=== PATIENT | female | born 1945 | race Caucasian/White ===

== ENCOUNTER 2023-01-25 12:33 | Observation (INO) | payer MEDICARE, BC ==
[2023-01-25] VITALS (18 sets, daily range): BP systolic 111–168; BP diastolic 57–104
[~2023-01-25] VITALS: Ht 157.5 cm; Wt 79.9 kg
--- NOTE | 2023-01-25 12:36 | NUR ---
PT AMBULATED TO RM 12 AT THIS TIME PT IS AOX4 PROVIDER NOTIFIED OF PT STATUS
[2023-01-25 13:11] LABS: BASO% 0.3 % (0-3); EOS% 1.9 % (0-8); HEMATOCRIT 41.4 % (37.0-47.0); HEMOGLOBIN 13.3 g/dl (12.0-16.0); IMMATURE GRANULOCYTES 0.7 % (0.0-5.0); LYMPH% 23.1 % (15-41); MEAN CELL VOLUME 87.5 fL CALC (80.0-100.0); MEAN CORPUSCULAR HGB 28.1 pG CALC (26.0-32.0); MEAN CORPUSCULAR HGB CONC 32.1 g/dL CAL (32.0-36.0); MONO% 7.1 % (2-13); NEUT# 6.31 thou/uL (2.00-7.15); NEUT% 66.9 % (42-76); RED BLOOD COUNT 4.73 mill/uL (4.20-5.60); RED CELL DISTRI WIDTH 13.2 % (11.5-15.5)
--- NOTE | 2023-01-25 13:15 | NUR ---
pt placed on heart monitor, given blanket and medicated.
[2023-01-25 13:32] LABS: ALBUMIN 3.7 g/dL (3.2-5.0); ALKALINE PHOSPHATASE 101 u/l (38-126); ANION GAP 10 (6-22 (CALC)); BILIRUBIN, TOTAL 0.4 mg/dL (0.02-1.3); BUN 17 mg/dL (8-23); BUN/CREATININE RATIO 20 (12-20 (CALC)); CARBON DIOXIDE 25 mmol/l (22-30); CHLORIDE 107 mmol/l (95-108); CREATININE 0.9 mg/dL (0.5-1.0); GFR FOR AFR.AMER. > 60 ML/MIN (>=60 (CALC)); GFR OTHER RACES > 60 ML/MIN (>=60 (CALC)); POTASSIUM 3.7 mmol/l (3.5-5.1); SGOT/AST 26 u/l (9-36); SODIUM 139 mmol/l (137-146); TOTAL PROTEIN 6.5 g/dL (6.3-8.2)
--- NOTE | 2023-01-25 14:15 | NUR ---
pt awaiting admission bed, pt has no complaints no, denies chest pain
--- NOTE | 2023-01-25 15:02 | NUR ---
awaiting bed, 2nd ekg completed
--- NOTE | 2023-01-25 16:00 | NUR ---
pt ambulatory to the bathroom, back to room.
--- NOTE | 2023-01-25 17:00 | NUR ---
pt up to chair, denies chest pain, spouse went home.
[2023-01-25] MEDS ORDERED: VITAMIN D-32000 UNI1 (17:26)
[2023-01-25] MEDS ORDERED: LEVOTHYROXIN88 MC1 PO (17:26)
[2023-01-25] MEDS ORDERED: PLAVIX75 MG PO (17:26)
[2023-01-25] MEDS ORDERED: TENORMIN25 MG PO (17:26)
[2023-01-25] MEDS ORDERED: TRELEGY ELLIPTA1 AER (17:27)
[2023-01-25] MEDS ORDERED: CRESTOR20 MG PO (17:27)
[2023-01-25] MEDS ORDERED: CILOSTAZOL100 MG PO (17:27)
[2023-01-25] MEDS ORDERED: CO Q-10100 MG PO (17:28)
--- NOTE | 2023-01-25 17:33 | NUR ---
report given to yon christianson
--- NOTE | 2023-01-25 19:34 | NUR ---
PT STATED TOOK HOMEMEDICATIONS THIS MORNING PT DENIES PAIN AT THE TIME. ER CALLED FLOOR STATED PT ENTERED VTACH NO VTACH NOTED OTHER THAN [employer] DR BEAVER NOTIFIED. NO NEW ORDERS AT THE TIME. PT A/OX3 RESPIRATIONS ON ROOM AIR IV SITE NOTED. HEART RHYTHM ON TELE. PT STATED BM TODAY PT STATED VOIDED WITH NO PROBLEMS. PT DENIES ADDITIONAL NEEDS AT THE TIME ALL SAFETY PRECAUTIONS IN PLACE WITH CALL LIGHT INREACH.
--- NOTE | 2023-01-25 20:10 | NUR ---
RECEIVED BEDSIDE REPORT FROM DAYSHIFT NURSE. PT IS SITTING IN BED. MADE PT AWARE OF CHANGE OF STAFF. PLAN OF CARE HAS BEEN REVIEWED WITH PT. NO COMPLAINTS AT THIS TIME. SAFETY PRECAUTIONS IN PLACE AND CALL LIGHT WITHIN REACH.
[2023-01-26] VITALS: BP 163/58
--- NOTE | 2023-01-26 00:25 | NUR ---
PT IS IN BED SLEEPIN COMFORTABLY. PT SHOWS NO SIGNS OF PAIN OR DISTRESS AT THIS TIME. SAFETY PRECAUTIONS IN PLACE AND CALL LIGHT WITHIN REACH.
[2023-01-26 03:55] VITALS: BP 125/60
[2023-01-26 04:00] VITALS: BP 125/60
--- NOTE | 2023-01-26 04:00 | NUR ---
PT IS LAYING IN BED AT THIS TIME SLEEPING. PT SHOWS NO SIGNS OF PAIN OR DISCOMFORT AT THIS TIME. SAFETY PRECAUTIONS IN PLACE AND CALL LIGHT WITHIN REACH.
[2023-01-26 07:00] VITALS: BP 132/62
--- NOTE | 2023-01-26 07:41 | NUR ---
RECIEVED REPORT FROM CLYDE. PT AOX3 SITTING UP IN CHAIR NO COMPLAINTS OF PAIN, LUNGS CLEAR, BOWEL SOUND ACTIVE, STATES SHE "FEELS GOOD".
[2023-01-26 07:43] LABS: HEMATOCRIT 40.5 % (37.0-47.0); MEAN CELL VOLUME 89.2 fL CALC (80.0-100.0); MEAN CORPUSCULAR HGB 28.6 pG CALC (26.0-32.0); MEAN CORPUSCULAR HGB CONC 32.1 g/dL CAL (32.0-36.0); RED BLOOD COUNT 4.54 mill/uL (4.20-5.60); RED CELL DISTRI WIDTH 13.3 % (11.5-15.5)
[2023-01-26 07:50] LABS: ALBUMIN 3.5 g/dL (3.2-5.0); ALKALINE PHOSPHATASE 109 u/l (38-126); ANION GAP 12 (6-22 (CALC)); BILIRUBIN, TOTAL 0.5 mg/dL (0.02-1.3); BUN 16 mg/dL (8-23); BUN/CREATININE RATIO 20 (12-20 (CALC)); CARBON DIOXIDE 24 mmol/l (22-30); CHLORIDE 108 mmol/l (95-108); CREATININE 0.8 mg/dL (0.5-1.0); GFR FOR AFR.AMER. > 60 ML/MIN (>=60 (CALC)); GFR OTHER RACES > 60 ML/MIN (>=60 (CALC)); MAGNESIUM 2.4 mg/dL (1.6-2.3); POTASSIUM 4.1 mmol/l (3.5-5.1); SGOT/AST 23 u/l (9-36); SODIUM 141 mmol/l (137-146); TOTAL PROTEIN 5.7 g/dL (6.3-8.2)
[2023-01-26 10:47] VITALS: BP 153/65
--- NOTE | 2023-01-26 11:24 | NUR ---
AT BEDSIDE DISCUSSING POC WITH PT.
--- NOTE | 2023-01-26 13:23 | NUR ---
REVIEWED DISCHARGE INSTRUCTIONS WITH PT ANS HER . PT STATES UNDERSTANDING. DC'D IV AND TELE BOX. PLACED TELE IN BOX AT NURSES STATION.
--- NOTE | 2023-01-26 13:26 | NUR ---
PT AOX3 RESTING COMFORTABLY IN CHAIR. BP 153/65 HR 70, O2 97%. RESPIRATIONS ARE EVEN AND UNLABORED, PT DENIES PAIN AT THIS TIME.
--- NOTE | 2023-01-26 13:29 | NUR ---
PT LEFT THE FLOOR VIA WHEELCHAIR TRANSPORT WITH BELONGINGS IN HAND, AT HER SIDE.
== END 2023-01-26 13:27 | disposition home or self-care (01) ==
LOC: ED 12:33 → ED-I 14:20 → ED 15:00 → MS2 15:01
PROVIDERS: Family Medicine; ADMIT Student in an Organized Health Care Education/Training Program; ATTEND Student in an Organized Health Care Education/Training Program
DX: R07.9 Chest pain, unspecified (principal); E78.5 Hyperlipidemia, unspecified; I73.9 Peripheral vascular disease, unspecified; E03.9 Hypothyroidism, unspecified; Z95.820 Peripheral vascular angioplasty status with implants and grafts

== ENCOUNTER 2023-02-28 16:38 | Emergency (ER) | payer MEDICARE ==
[2023-02-28] VITALS (11 sets, daily range): BP systolic 130–180; BP diastolic 71–88
[~2023-02-28] VITALS: Ht 157.5 cm; Wt 77.0 kg
[~2023-02-28 16:38] MED LIST: CILOSTAZOL100 MG PO; CO Q-10100 MG PO; CRESTOR20 MG PO; LEVOTHYROXIN88 MC1 PO; PLAVIX75 MG PO; TENORMIN25 MG PO; TRELEGY ELLIPTA1 AER; VITAMIN D-32000 UNI1
[2023-02-28 17:36] LABS: BASO% 0.3 % (0-3); EOS% 0.2 % (0-8); HEMATOCRIT 43.3 % (37.0-47.0); HEMOGLOBIN 14.3 g/dl (12.0-16.0); IMMATURE GRANULOCYTES 0.1 % (0.0-5.0); LYMPH% 21.1 % (15-41); MEAN CELL VOLUME 86.6 fL CALC (80.0-100.0); MEAN CORPUSCULAR HGB 28.6 pG CALC (26.0-32.0); MONO% 9.4 % (2-13); NEUT# 6.01 thou/uL (2.00-7.15); NEUT% 68.9 % (42-76)
[2023-02-28 17:50] LABS: ALKALINE PHOSPHATASE 129 u/l (38-126); ANION GAP 11 (6-22 (CALC)); BUN 17 mg/dL (8-23); BUN/CREATININE RATIO 20 (12-20 (CALC)); CARBON DIOXIDE 25 mmol/l (22-30); CHLORIDE 105 mmol/l (95-108); CREATININE 0.9 mg/dL (0.5-1.0); GFR FOR AFR.AMER. > 60 ML/MIN (>=60 (CALC)); GFR OTHER RACES > 60 ML/MIN (>=60 (CALC)); SGOT/AST 38 u/l (9-36); SODIUM 137 mmol/l (137-146)
[2023-02-28 17:54] LABS: ALBUMIN 4.5 g/dL (3.2-5.0); BILIRUBIN, TOTAL 0.8 mg/dL (0.02-1.3); TOTAL PROTEIN 7.6 g/dL (6.3-8.2)
[2023-02-28 18:46] LABS: URINE BILIRUBIN - DIPSTICK Negative (NEGATIVE); URINE BLOOD DIPSTICK Negative (NEGATIVE); URINE GLUCOSE - DIPSTICK Negative (NEGATIVE); URINE KETONE Trace mg/dL (NEGATIVE); URINE LEUK ESTERASE Negative (NEGATIVE); URINE NITRITE - DIPSTICK Negative (Negative); URINE PROTEIN - DIPSTICK 30 mg/dL (NEG-TRACE); URINE SPECIFIC GRAVITY 1.025
[2023-02-28 18:47] LABS: URINE COLOR Yellow; URINE RBC 0-2 RBC/hpf (0-5); URINE SQUAMOUS EPITHELIAL CELL FEW EPI/hpf (0-FEW); URINE WBC 0-2 WBC/hpf (0-5)
[2023-02-28] MEDS ORDERED: PAXLOVID 10 X 11 TAB PO (19:09)
== END 2023-02-28 19:19 | disposition home or self-care (01) ==
LOC: ED 16:38
PROVIDERS: Nurse Practitioner
DX: U07.1 COVID-19 (principal); R50.9 Fever, unspecified; R05.9 Cough, unspecified; R06.02 Shortness of breath; R53.83 Other fatigue